=== PATIENT | female | born 1990 | race African-American/Black ===

== ENCOUNTER 2017-03-31 18:46 | Emergency (ER) | payer MEDICAID ==
[~2017-03-31] VITALS: Ht 160 cm; Wt 60.0 kg
[2017-03-31] MEDS ORDERED: FAMOTIDINE 20MG/2ML VIAL IV STA (23:23)
[2017-03-31] MEDS ORDERED: SODIUM CHLORIDE 0.9% 1,000 ML IV ONE (23:23)
[2017-03-31] MEDS ORDERED: KETOROLAC 30MG/ML VIAL IV STA (23:23)
[2017-03-31] MEDS ORDERED: ONDANSETRON HCL 4MG/2ML VIAL IV STA (23:23)
[2017-03-31 23:42] LABS: CLARITY URINE TURBID (CLEAR); COLOR URINE DARK YELLOW (YELLOW); GLUCOSE URINE NEGATIVE (NEGATIVE); KETONES URINE 1+ (NEGATIVE); LEUKOCYTE ESTERASE URINE 3+ (NEGATIVE); NITRITE URINE POSITIVE (NEGATIVE); OCCULT BLOOD URINE 2+ (NEGATIVE); PROTEIN URINE 2+ (NEGATIVE)
[2017-03-31 23:44] LABS: HEMATOCRIT. 30.7 % (36.0-48.0); HEMOGLOBIN. 9.8 g/dL (12.0-16.0); MEAN CORPUSCULAR HEMOGLOBIN 27.4 pg (28.0-32.0); MEAN CORPUSCULAR VOLUME 85.5 fL (81.0-99.0); MEAN PLATELET VOLUME 9.5 fl (7.4-10.4); PLATELET 185 x1000/uL (130-400); RED BLOOD CELL COUNT 3.59 mill/uL (4.2-5.4); RED CELL DISTRIBUTION WIDTH 13.9 % (11.6-14.6)
[2017-03-31 23:50] LABS: CHLORIDE 103 mEq/L (98-107)
[2017-03-31 23:53] LABS: INR 1.1; PROTHROMBIN TIME 11.9 sec
[2017-04-01] LABS: CARBON DIOXIDE 25 mEq/L (21-32)
[2017-04-01 00:50] LABS: PLATELET ESTIMATE NORMAL
[2017-04-01] MEDS ORDERED: SULFAMETHOXAZOLE/TRIMETHOPRIM 800/160MG TABLET PO SCH (02:00)
[2017-04-01] MEDS ORDERED: MAGNESIUM HYDROXIDE 400MG/5ML 30ML UDC PO ONE (02:00)
[2017-04-01] MEDS ORDERED: SULFAMETHOXAZOLE/TRIMETHOPRIM 800/160MG TABLET PO ONE (02:00)
[2017-04-01] MEDS ORDERED: SODIUM CHLORIDE 0.9% 1,000 ML IV ONE (02:15)
[2017-04-01 02:30] VITALS: BP 109/64
== END 2017-04-01 05:18 | disposition home or self-care (01) ==
LOC: ER 23:45
DX: N39.0 Urinary tract infection, site not specified (principal)
CPT/HCPCS: 36415; 80053; 81001; 81025; 85025; 85610; 96361; 96374; 96375; 99285; J1885; J2405; J3490; J7030; Z7610

== ENCOUNTER 2019-07-25 08:38 | Emergency (ER) | payer MEDICAID ==
[~2019-07-25] VITALS: Ht 165.1 cm; Wt 62.0 kg
[2019-07-25] MEDS ORDERED: SODIUM CHLORIDE 0.9% 1,000 ML IV ONE (08:47)
[2019-07-25] MEDS ORDERED: OLANZAPINE 10 MG/VIAL IM ONE (09:00)
[2019-07-25] MEDS ORDERED: LORAZEPAM 2MG/ML CPJ IM ONE (09:00)
[2019-07-25 09:29] LABS: BASOPHILS % 0.4 % (0.0-2.0); EOSINOPHILS % 0.1 % (0.0-5.0); HEMATOCRIT. 35.5 % (36.0-48.0); HEMOGLOBIN. 11.7 g/dL (12.0-16.0); LYMPHOCYTES % 10.9 % (20.0-50.0); MEAN CORPUSCULAR HEMOGLOBIN 29.8 pg (28.0-32.0); MEAN CORPUSCULAR VOLUME 90.1 fL (81.0-99.0); MEAN PLATELET VOLUME 9.3 fl (7.4-10.4); MONOCYTES % 4.8 % (2.0-8.0); NEUTROPHILS % 83.8 % (40.0-76.0); PLATELET 190 x1000/uL (130-400); RED BLOOD CELL COUNT 3.94 mill/uL (4.2-5.4); RED CELL DISTRIBUTION WIDTH 12.3 % (11.6-14.6)
[2019-07-25 09:36] LABS: CHLORIDE 111 mEq/L (98-107)
[2019-07-25 09:40] LABS: ETHANOL BLOOD < 10 mg/dL
[2019-07-25 09:53] LABS: CLARITY URINE CLOUDY (CLEAR); COLOR URINE DARK YELLOW (YELLOW); KETONES URINE 1+ (NEGATIVE); LEUKOCYTE ESTERASE URINE 1+ (NEGATIVE); NITRITE URINE NEGATIVE (NEGATIVE); OCCULT BLOOD URINE NEGATIVE (NEGATIVE); PH URINE 7.5 (4.5-8.0); PROTEIN URINE 3+ (NEGATIVE)
[2019-07-25 09:55] LABS: HCG SCREEN NEGATIVE
[2019-07-25 10:19] LABS: *AMPHETAMINES SCREEN URINE NEGATIVE (NEGATIVE); *BARBITURATES SCREEN URINE NEGATIVE (NEGATIVE); *BENZODIAZEPINES SCREEN URINE NEGATIVE (NEGATIVE); *COCAINE SCREEN URINE NEGATIVE (NEGATIVE); METHADONE URINE SCREEN NEGATIVE (NEGATIVE); OPIATES URINE SCREEN NEGATIVE (NEGATIVE); PHENCYCLIDINE URINE SCREEN NEGATIVE (NEGATIVE)
[2019-07-25 10:24] LABS: CANNABINOID URINE SCREEN PRESUMTIVE POSITIVE (NEGATIVE)
[2019-07-25] MEDS ORDERED: LEVOFLOXACIN 500MG TABLET PO ONE (10:30)
[2019-07-25 21:30] VITALS: BP 124/72
== END 2019-07-25 23:11 | disposition left against medical advice (07) ==
LOC: ER 08:38 → EDBD 08:38 → ER 23:11
DX: F20.9 Schizophrenia, unspecified (principal); F31.9 Bipolar disorder, unspecified; N39.0 Urinary tract infection, site not specified
CPT/HCPCS: 36415; 80053; 80305; 80307; 80320; 80329; 81003; 81025; 84703; 85025; 96372; 99284; J2060; J3490; J7030; G0480

== ENCOUNTER 2023-08-02 18:18 | Emergency (ER) | payer MEDICAID ==
[~2023-08-02] VITALS: Ht 160 cm; Wt 55.0 kg
[2023-08-02 18:28] VITALS: O2SAT 97
[2023-08-02 21:25] LABS: BASOPHILS % 0.1 % (0.0-2.0); EOSINOPHILS % 0.7 % (0.0-5.0); HEMOGLOBIN. 9.8 g/dL (12.0-16.0); LYMPHOCYTES % 23.8 % (20.0-50.0); MEAN CORPUSCULAR HEMOGLOBIN 29.6 pg (28.0-32.0); MEAN CORPUSCULAR HGB CONC 32.7 g/dL (31.0-37.0); MEAN CORPUSCULAR VOLUME 90.6 fL (81.0-99.0); MEAN PLATELET VOLUME 8.7 fl (7.4-10.4); MONOCYTES % 9.5 % (2.0-8.0); NEUTROPHILS % 65.9 % (40.0-76.0); PLATELET 268 x1000/uL (130-400); RED BLOOD CELL COUNT 3.32 mill/uL (4.2-5.4); RED CELL DISTRIBUTION WIDTH 12.6 % (11.6-14.6)
[2023-08-02 21:53] LABS: ALANINE AMINOTRANSFERASE 12 IU/L (10-49); ALBUMIN 3.7 g/dL (3.2-4.8); ASPARTATE AMINOTRANSFERASE 20 IU/L (<34); BILIRUBIN TOTAL 0.2 mg/dL (0.1-1.0); CARBON DIOXIDE 22 mEq/L (21-32); CHLORIDE 106 mEq/L (98-107); CREATININE 0.5 mg/dL (0.6-1.0); GLUCOSE 65 mg/dL (70-105); POTASSIUM 3.5 mEq/L (3.5-5.1); PROTEIN TOTAL 6.7 g/dL (6.0-8.3); SODIUM 137 mEq/L (136-145); UREA NITROGEN BLOOD 5 mg/dL (9-23)
[2023-08-02 22:33] VITALS: BP 101/56; PULSE 91; RESP 16; TEMP 98.3
[2023-08-02 22:55] LABS: CLARITY URINE CLOUDY (CLEAR); COLOR URINE YELLOW (YELLOW); GLUCOSE URINE NEGATIVE (NEGATIVE); KETONES URINE NEGATIVE (NEGATIVE); LEUKOCYTE ESTERASE URINE 2+ (NEGATIVE); NITRITE URINE NEGATIVE (NEGATIVE); OCCULT BLOOD URINE NEGATIVE (NEGATIVE); PH URINE 6.5 (4.5-8.0); PROTEIN URINE NEGATIVE (NEGATIVE); SPECIFIC GRAVITY URINE 1.013 (1.005-1.030)
[2023-08-02 23:03] LABS: *AMPHETAMINES SCREEN URINE PRESUMPTIVE POSITIVE (NEGATIVE); *BARBITURATES SCREEN URINE NEGATIVE (NEGATIVE); *BENZODIAZEPINES SCREEN URINE NEGATIVE (NEGATIVE); *COCAINE SCREEN URINE PRESUMPTIVE POSITIVE (NEGATIVE); CANNABINOID URINE SCREEN PRESUMPTIVE POSITIVE (NEGATIVE); ECSTASY MDMA SCREEN URINE NEGATIVE (NEGATIVE); METHADONE URINE SCREEN Neg (NEGATIVE); OPIATES URINE SCREEN NEGATIVE (NEGATIVE); PHENCYCLIDINE URINE SCREEN NEGATIVE (NEGATIVE)
[2023-08-02 23:17] LABS: BACTERIA URINE 2+
[2023-08-02 23:18] LABS: RBC URINE 0-2 /hpf (0-2); SQUAMOUS EPITHELIAL CELL URINE 1+ /lpf (RARE/1+)
[2023-08-02 23:21] LABS: TRICHOMONAS URINE FEW
== END 2023-08-02 22:39 ==
LOC: ER 18:18
DX: Z34.83 Encounter for supervision of other normal pregnancy, third trimester (principal); Z3A.28 28 weeks gestation of pregnancy; F31.2 Bipolar disorder, current episode manic severe with psychotic features
CPT/HCPCS: 36415; 76805; 80053; 80305; 81003; 84702; 85025; 86850; 86900; 99284